=== PATIENT | male | born 1975 | race Caucasian/White ===

== ENCOUNTER 2016-08-31 16:46 | Inpatient (IN) | payer BC ==
[~2016-08-31] VITALS: Ht 170.2 cm; Wt 79.4 kg
[2016-09-01] MEDS ORDERED: IBUPROFEN800 MG PO (02:49)
[2016-09-01] MEDS ORDERED: LIPITOR TAB 2020 MG PO (02:49)
[2016-09-01] MEDS ORDERED: ACCUPRIL TAB 5MG5 MG PO (02:49)
[2016-09-01] MEDS ORDERED: LOPRESSOR 25 MG25 MG PO (02:49)
[2016-09-01] MEDS ORDERED: ASPIRIN325 MG PO (02:50)
[2016-09-01 03:34] LABS: HEMOGLOBIN 14.6 gm/dl (14.0-17.5); RED BLOOD COUNT 5.1 M/UL (4.20-5.50); WHITE BLOOD COUNT 17.7 K/UL (4.5-11.0)
[2016-09-01 04:37] LABS: BUN/CREATININE RATIO 13 (0-10)
[2016-09-02 04:34] LABS: HEMOGLOBIN 13.7 gm/dl (14.0-17.5); RED BLOOD COUNT 4.69 M/UL (4.20-5.50); WHITE BLOOD COUNT 22.1 K/UL (4.5-11.0)
[2016-09-02 19:59] LABS: HEMOGLOBIN 12.5 gm/dl (14.0-17.5); RED BLOOD COUNT 4.32 M/UL (4.20-5.50); WHITE BLOOD COUNT 19.4 K/UL (4.5-11.0)
[2016-09-02 20:14] LABS: BUN/CREATININE RATIO 14 (0-10)
[2016-09-03 03:55] LABS: HEMOGLOBIN 12.7 gm/dl (14.0-17.5); RED BLOOD COUNT 4.45 M/UL (4.20-5.50); WHITE BLOOD COUNT 17.1 K/UL (4.5-11.0)
[2016-09-03 04:50] LABS: BUN/CREATININE RATIO 15 (0-10)
[2016-09-05] MEDS ORDERED: ASPIRIN81 MG PO (14:47)
[2016-09-05] MEDS ORDERED: LISINOPRIL5 MG PO (14:49)
[2016-09-05] MEDS ORDERED: BRILINTA 90 MG90 MG PO (14:50)
[2016-09-05] MEDS ORDERED: NITROSTAT 0.40.4 MG SL (14:55)
--- NOTE | 2016-09-05 19:52 | NUR ---
PT OFF THE FLOOR UNABLE TO ASSESS
--- NOTE | 2016-09-05 22:55 | NUR ---
PT RETURNED TO THE ROOM AT 2210 REPORTS NO DISTRESS, NO COMPLAINTS
== END 2016-09-06 19:45 | disposition home or self-care (01) | DRG 246 ==
LOC: ZEROF 17:07 → CCU 17:07
PROVIDERS: Internal Medicine; ADMIT Internal Medicine Cardiovascular Disease
PROC: 027034Z Dilation of Coronary Artery, One Artery with Drug-eluting Intraluminal Device, Percutaneous Approach (ICD-10-PCS; principal; 2016-08-31)
PROC: 4A023N7 Measurement of Cardiac Sampling and Pressure, Left Heart, Percutaneous Approach (ICD-10-PCS; 2016-08-31)
PROC: 027036Z Dilation of Coronary Artery, One Artery with Three Drug-eluting Intraluminal Devices, Percutaneous Approach (ICD-10-PCS; 2016-09-02)
PROC: 02C03ZZ Extirpation of Matter from Coronary Artery, One Artery, Percutaneous Approach (ICD-10-PCS; 2016-09-02)
PROC: 3E07317 Introduction of Other Thrombolytic into Coronary Artery, Percutaneous Approach (ICD-10-PCS; 2016-09-02)
DX: I21.3 ST elevation (STEMI) myocardial infarction of unspecified site (principal); T82.867A Thrombosis due to cardiac prosthetic devices, implants and grafts, initial encounter; I25.10 Atherosclerotic heart disease of native coronary artery without angina pectoris; Z95.5 Presence of coronary angioplasty implant and graft; Z79.82 Long term (current) use of aspirin; Z79.899 Other long term (current) drug therapy; F17.210 Nicotine dependence, cigarettes, uncomplicated; I10 Essential (primary) hypertension; E78.5 Hyperlipidemia, unspecified; I25.5 Ischemic cardiomyopathy; Z82.49 Family history of ischemic heart disease and other diseases of the circulatory system; Z83.3 Family history of diabetes mellitus; H66.92 Otitis media, unspecified, left ear
CPT/HCPCS: ECHO; 36415; 80048; 82550; 82553; 84132; 84484; 85027; 85347; 85610; 85730; 92920; 93005; 93306; 93308; C1725; C1757; C1769; C1874; C1887; C1894; C9600; J0153; J0282; J0461; J0583; J1644; J2001; J2250; J2370; J2405; J3010; J3480; J7030; J7040; Q9963; Q9965

== ENCOUNTER → 2016-09-24 | Outpatient (CLI) | payer BC ==
[~2016-09-24] MED LIST: ACCUPRIL TAB 5MG5 MG PO; ASPIRIN325 MG PO; ASPIRIN81 MG PO; BRILINTA 90 MG90 MG PO; IBUPROFEN800 MG PO; LIPITOR TAB 2020 MG PO; LISINOPRIL5 MG PO; LOPRESSOR 25 MG25 MG PO; NITROSTAT 0.40.4 MG SL
== END ==
LOC: HEART 5 11:30
DX: Z86.79 Personal history of other diseases of the circulatory system (principal)
CPT/HCPCS: 93306

== ENCOUNTER → 2016-11-21 | Outpatient (CLI) | payer BC | LOC: NM 08:32 | DX: I25.10 Atherosclerotic heart disease of native coronary artery without angina pectoris (principal); R06.02 Shortness of breath | CPT/HCPCS: 78452; 93017; A9502; J2785 ==